=== PATIENT | female | born 1970 | race Caucasian/White ===

== ENCOUNTER 2018-05-25 14:15 | Emergency (ER) | payer BC ==
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
[2018-05-25 14:51] VITALS: BP 118/72
--- NOTE | 2018-05-25 14:58 | UC ---
Back Pain HPI - HPI Summary HPI Summary: pt states she felt some sharp pain in her L low back this am after she had been lifting a grandchild. feels like spasm and is worse with movement. - History of Current Complaint Chief Complaint: UCBackPain Stated Complaint: BACK PAIN Time Seen by Provider: 05/25/18 14:47 Hx Obtained From: Patient Onset/Duration: Sudden Onset Timing: Constant Pain Intensity: 5 Aggravating Factor(s): Movement Alleviating Factor(s): Rest Associated Signs And Symptoms: Negative: Fever, Weakness, Numbness, Tingling, Abdominal Pain, Flank Pain, Bladder Incontinence, Bowel Incontinence - Risk Factors AAA Risk Factors: Negative TAD Risk Factors: Negative Cauda Equina Risk Factors: Negative Epidural Abscess Risk Factors: Negative - Allergies/Home Medications Allergies/Adverse Reactions: Allergies Allergy/AdvReac Type Severity Reaction Status Date / Time No Known Allergies Allergy Verified 05/25/18 14:51 Home Medications: Home Medications Cholecalciferol TAB* [Vitamin D TAB*] 2,000 units PO DAILY 05/25/18 [History Confirmed 05/25/18] Phendimetrazine Tartrate 35 mg PO DAILY 05/25/18 [History Confirmed 05/25/18] PMH/Surg Hx/FS Hx/Imm Hx Endocrine History: Dyslipidemia GI/ History: Gastroesophageal Reflux - Surgical History Surgical History: Yes Surgery Procedure, Year, and Place: HYSTERECTOMY, C SECTION , LEFT KNEE SURGERY - Family History Known Family History: Positive: Other - [place] - Social History Occupation: Employed Full-time Lives: With Family Alcohol Use: Occasionally Substance Use Type: None Smoking Status (MU): Never Smoked Tobacco When Did the Patient Quit Smoking/Using Tobacco: 10 years ago - Immunization History Most Recent Influenza Vaccination: not this season Hx Tetanus, Diphtheria Vaccination: No Vaccination Up to Date: Yes Review of Systems Constitutional: Negative Skin: Negative Eyes: Negative ENT: Negative Respiratory: Negative Cardiovascular: Negative Gastrointestinal: Negative Genitourinary: Negative Motor: Negative Neurovascular: Negative Musculoskeletal: Other: - L low back pain Neurological: Negative Psychological: Negative Is Patient Immunocompromised?: No All Other Systems Reviewed And Are Negative: Yes Physical Exam Triage Information Reviewed: Yes Appearance: Well-Appearing Vital Signs: Initial Vital Signs Temp 97.8 F 05/25/18 14:41 Pulse 72 05/25/18 14:41 Resp 16 05/25/18 14:41 BP 118/72 05/25/18 14:41 Pulse Ox 98 05/25/18 14:41 Vital Signs Reviewed: Yes Eyes: Positive: Conjunctiva Clear ENT: Positive: Pharynx normal, TMs normal. Negative: Nasal congestion, Nasal drainage Neck: Positive: Supple, Nontender, No Lymphadenopathy Respiratory: Positive: Lungs clear, Normal breath sounds Cardiovascular: Positive: RRR, No Murmur Abdomen Description: Positive: Nontender, No Organomegaly, Soft. Negative: Bruit, CVA Tenderness (R), CVA Tenderness (L), Distended, Guarding Bowel Sounds: Positive: Present Musculoskeletal: Positive: No Edema, Other: - Cervical, thoracic and lumbar regions are without gross deformity swelling or discoloration. Spinous processes are nontender to palpation. Patient's pain is reproduced and worsened by palpation of the paraspinal muscles on the left and lumbar region. Range of motion is intact throughout however active range of motion increases left lower back pain. She is 5 out of 5 strength and 2+ reflexes 4. No saddle anesthesia. She is normal steady gait. Neurological: Positive: Alert Psychological: Positive: Age Appropriate Behavior Skin Exam: Normal Back Pain Course/Dx - Course Course Of Treatment: No concern for infection, acute abdomen or cauda equina. We'll treat with anti-inflammatory and muscle relaxer. Patient advised to seek close follow-up with her primary care to complete an of treatment or sooner for worsening - Differential Dx/Diagnosis Provider Diagnoses: acute L low back pain Discharge - Sign-Out/Discharge Documenting (check all that apply): Patient Departure - Discharge Plan Condition: Stable Disposition: HOME Prescriptions: Cyclobenzaprine TAB* [Flexeril 10 MG TAB*] 10 mg PO TID #10 tab Naproxen [Naprosyn 500 mg tab] 500 mg PO BID #14 tablet Patient Education Materials: Acute Low Back Pain (ED) Forms: *Work Release Referrals: Ney REA,Michelle Quiñonez [Primary Care Provider] - Additional Instructions: START THE MEDICATIONS AT BEDTIME TONIGHT. STOP ALL MOTRIN USE - Billing Disposition and Condition Condition: STABLE Disposition: Home Attestation Statement User Type: Provider - I was available for consult. This patient was seen by the PAT. The patient was not presented to, seen by, or examined by me. -April
== END 2018-05-25 15:12 | disposition home or self-care (01) ==
LOC: UCCORT 14:15
DX: M54.5 Low back pain (principal)
CPT/HCPCS: 99212; G0463

== ENCOUNTER 2018-09-03 11:21 | Emergency (ER) | payer BC, OTHER ==
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
[2018-09-03] MEDS ORDERED: Clindamycin 600 MG IVPREMIX(* 600 MG in PREMIX* 0 ML IV ONE (11:45)
[2018-09-03] MEDS ORDERED: NS 0.9% 1000 ML* 1,000 ML IV ONE (11:45)
[2018-09-03] MEDS ORDERED: Ketorolac INJ* 30 MG/ML 1 ML VIAL IV PUSH ONE (11:48)
[2018-09-03] MEDS ORDERED: Dexamethasone IV* 4 MG/ML 5 ML VIAL (20 MG) IVPB ONE (11:48)
--- NOTE | 2018-09-03 11:56 | ED ---
Throat Pain/Nasal Congestion - HPI Summary HPI Summary: Patient Presents with progressive anterior neck swelling and pain. This started about 3 days ago as tightness in her throat with mild dysphagia and has progressed to trismus with worsening of dysphagia. She denies marifer pain with trying to swallow - she just reports it's difficult to swallow and has some minor nasal congestion and feels a headache and ear pressure coming. Denies marifer neck stiffness, chest pain, sneezing, coughing, fevers, chills, nausea, vomiting, diarrhea, rash, racing heart. H/o strep and this does not feel the same. No h/o recent oral sex. Imms are UTD and no concern for contact with recent illness such as mumps, etc. She has not taken any meds prior to arrival for fear of choking on a pill. Prior to this morning, has been taking OTC theraflu w/ minimal relief. no trauma to throat/neck and no preceeding dental pain or h/o infections here. Daughter is with her today and reports she never goes to the dr - is sick to be here today. PCP also phoned in that she was concerned about pt's presentation. 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 - Allergies/Home Medications Allergies/Adverse Reactions: Allergies Allergy/AdvReac Type Severity Reaction Status Date / Time No Known Allergies Allergy Verified 05/25/18 14:51 PMH/Surg Hx/FS Hx/Imm Hx Previously Healthy: Yes Endocrine/Hematology History: Reports: Other Endocrine/Hematological Disorders - obesity - takes phendimetrazine and metformin Denies: Hx Anticoagulant Therapy, Hx Blood Disorders, Hx Diabetes, Hx Thyroid Disease Cardiovascular History: Reports: Hx Hypercholesterolemia Respiratory History: Denies: Hx Asthma, Hx Seasonal Allergies, Hx Sleep Apnea GI History: Reports: Hx Gastroesophageal Reflux Disease - takes PPI Sensory History: Reports: Hx Contacts or Glasses Opthamlomology History: Reports: Hx Contacts or Glasses Neurological History: Denies: Hx Headaches - Cancer History Cancer Type, 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 Negative: Chills, Fatigue Eyes: Negative Negative: Photophobia, Blurred Vision, Diplopia, Drainage, Erythema Positive: Sore Throat, Ear Ache. Negative: Nasal Discharge Cardiovascular: Negative Negative: Chest Pain Respiratory: Negative Negative: Shortness Of Breath, Cough Gastrointestinal: Negative Negative: Abdominal Pain, Vomiting, Diarrhea, Nausea Positive: no symptoms reported Musculoskeletal: Negative Skin: Negative Positive: Headache - mild. Negative: Weakness, Paresthesia, Numbness, Syncope, Slurred Speech Psychological: Normal - concerned but calm All Other Systems Reviewed And Are Negative: Yes Physical Exam Triage Information Reviewed: Yes Vital Signs On Initial Exam: Initial Vitals Temp Pulse Resp BP Pulse Ox 97.7 F 79 16 132/74 98 09/03/18 11:22 09/03/18 11:22 09/03/18 11:22 09/03/18 11:22 09/03/18 11:22 Vital Signs Reviewed: Yes Appearance: Positive: Well-Appearing, Pain Distress - mild; guarding jaw movements, Obese Skin: Positive: Warm, Skin Color Reflects Adequate Perfusion, Dry - mild superficial erythema over anterior soft neck tissue - no lesions. no ecchymosis Head/Face: Positive: Normal Head/Face Inspection Eyes: Positive: Normal, EOMI, Conjunctiva Clear. Negative: Conjunctiva Inflammed, Discharge ENT: Positive: Hearing grossly normal, Pharyngeal erythema - mild - tonsils + 2 - scant white spot on Lt (tonsilith vs exudate); no edema or purulence observed ; no lesions, Nasal congestion - mild, TMs normal, Trismus, Uvula midline. Negative: Nasal drainage, Tonsillar swelling, Muffled voice, Hoarse voice, Dental tenderness, Sinus tenderness Neck: Positive: No Lymphadenopathy, Tenderness @ - anterior submandibular space over soft neck tissue appears full, TTP Respiratory/Lung Sounds: Positive: Clear to Auscultation, Breath Sounds Present. Negative: Rales, Rhonchi, Stridor, Wheezes, Unable to speak in full sentences, Fatigue Cardiovascular: Positive: Normal, RRR, S1, S2. Negative: Murmur, Rub Bowel Sounds: Positive: Present Musculoskeletal: Positive: Normal, Strength/ROM Intact - no neck sitffness or rigidity Neurological: Positive: Normal, Sensory/Motor Intact, Alert, Oriented to Person Place, Time, CN Intact II-III Psychiatric: Positive: Normal - concerned but calm and cooperative Diagnostics - Vital Signs Vital Signs Temp Pulse Resp BP Pulse Ox 09/03/18 11:22 97.7 F 79 16 132/74 98 - Laboratory Result Diagrams: 09/03/18 11:57 09/03/18 11:57 Lab Statement: Any lab studies that have been ordered have been reviewed, and results considered in the medical decision making process. Re-Evaluation - Re-Evaluation First Eval Change: Improved - trismus better - smiling, swallowing easier (road tested with popsicle) EENT Course/Dx - Course Course Of Treatment: Diff dx: Hans's angina. Labs, meds and imaging ordered. Discussed w/ Dr. Hussein - fiberoptics available via IUC if needed - airway well controlled at this time. CT soft tissue neck: cellulitis w/o abscess - discussed w/ Dr. Potts who also feels this appears safe given her course in ED for d/c - clear education provided re: danger s/sx for return to ED. Pt and daughter agree w/ plan. - Diagnoses Provider Diagnoses: Cellulitis of submandibular region Discharge - Sign-Out/Discharge Documenting (check all that apply): Patient Departure - Discharge Plan Condition: Stable Disposition: HOME Prescriptions: Clindamycin HCl 300 mg PO TID #30 capsule Ibuprofen TAB* [Motrin TAB* 600 MG] 600 mg PO Q6H PRN #20 tab PRN Reason: Pain predniSONE TAB* [Deltasone 20 MG TAB*] 40 mg PO DAILY #8 tab Patient Education Materials: Cellulitis (ED) Referrals: Marcial Redman MD [Medical Doctor] - Additional Instructions: Take medications as directed for infection, pain and swelling Stay hydrated with plenty of fluids including water, low sugar Gatorade, soup broth, smoothies, yogurt, etc. Follow-up with Dr. Redman on Wednesday for reevaluation - call in the morning to schedule appointment - take CD disc with you for review *If in the meantime you develop return of swelling, tightness, difficulties breathing or swallowing, return to the emergency department immediately - Billing Disposition and Condition Condition: STABLE Disposition: Home
[2018-09-03] MEDS ORDERED: IVPREMIX ONE (12:02)
[2018-09-03] MEDS ORDERED: CLINDAMYCIN 600 MG ONE (12:02)
[2018-09-03 12:06] LABS: ABS Basophils 0.1 10^3/ul (0-0.2); ABS Eosinophils 0.1 10^3/ul (0-0.6); ABS Lymphocytes 2.9 10^3/ul (1.0-4.8); ABS Monocytes 0.8 10^3/ul (0-0.8); ABS Neutrophils 7.3 10^3/ul (1.5-7.7); ABS Nucleated RBC 0 10^3/ul; Eosinophil % 0.8 % (0-6); Hematocrit 42 % (35-47); Hemoglobin 14.1 g/dl (12.0-16.0); Lymphocyte % 26.2 % (25-47); Mean Corpuscular HGB Conc 33 g/dl (31-36); Mean Corpuscular Hemoglobin 28 pg (27-31); Mean Corpuscular Volume 83 fL (80-97); Mean Platelet Volume 7.2 fL (7.4-10.4); Nucleated Red Blood Cells % 0; Platelet Count 275 10^3/ul (150-450); Red Blood Count 5.12 10^6/ul (4.00-5.40); Red Cell Distribution Width 14 % (10.5-15); White Blood Count 11.2 10^3/ul (3.5-10.8)
[2018-09-03 12:14] LABS: INR 1.04 (0.77-1.02)
[2018-09-03] MEDS ORDERED: Iohexol 300* (CONTRAST) 10 ML SDV IV ONE (12:36)
[2018-09-03 14:09] VITALS: BP 130/76
== END 2018-09-03 14:08 | disposition home or self-care (01) ==
LOC: ED 11:21
DX: L03.221 Cellulitis of neck (principal); R50.9 Fever, unspecified; R51 Headache; K21.9 Gastro-esophageal reflux disease without esophagitis
CPT/HCPCS: 36415; 70491; 80053; 83605; 85025; 85610; 85730; 86140; 86308; 87651; 96365; 96375; 99284; J1100; J1885; Q9967

== ENCOUNTER 2019-02-05 11:17 | Emergency (ER) | payer OTHER ==
[2019-02-05 11:43] VITALS: BP 121/69
--- NOTE | 2019-02-05 13:12 | UC ---
Upper Extremity HPI - HPI Summary HPI Summary: pt c/o pain to the R side of her neck. it began the day after raking leaves. self txing with ice, heat and occasional IB without relief. no cp, sob, numb/tingle/weakness to arms. - History of Current Complaint Chief Complaint: UCUpperExtremity Stated Complaint: RT SHOULDER/NECK INJURY Time Seen by Provider: 02/05/19 13:05 Hx Obtained From: Patient Pain Intensity: 8 Aggravating Factor(s): Movement - Allergies/Home Medications Allergies/Adverse Reactions: Allergies Allergy/AdvReac Type Severity Reaction Status Date / Time No Known Allergies Allergy Verified 02/05/19 11:38 Home Medications: Home Medications metFORMIN* [Glucophage 500 MG TAB *] 500 - 1,000 mg BID 02/05/19 [History Confirmed 02/05/19] PMH/Surg Hx/FS Hx/Imm Hx Endocrine History: Diabetes, Dyslipidemia GI/ History: Gastroesophageal Reflux Other History Of: Negative For: Anticoagulant Therapy - Surgical History Surgical History: Yes Surgery Procedure, Year, and Place: HYSTERECTOMY, C SECTION , LEFT KNEE SURGERY - Family History Known Family History: Positive: Other - [place] - Social History Occupation: Employed Full-time Alcohol Use: Occasionally Substance Use Type: None Smoking Status (MU): Never Smoked Tobacco When Did the Patient Quit Smoking/Using Tobacco: 10 years ago - Immunization History Most Recent Influenza Vaccination: not this season Hx Tetanus, Diphtheria Vaccination: No Vaccination Up to Date: Yes Review of Systems All Other Systems Reviewed And Are Negative: Yes Respiratory: Negative: Shortness Of Breath Cardiovascular: Negative: Chest Pain Musculoskeletal: Positive: Other: - R neck pain Neurological: Negative: Weakness, Paresthesia, Numbness Physical Exam Triage Information Reviewed: Yes Appearance: Well-Appearing Vital Signs: Initial Vital Signs Temp 97.6 F 02/05/19 11:40 Pulse 69 02/05/19 11:40 Resp 16 02/05/19 11:40 BP 121/69 02/05/19 11:40 Pulse Ox 99 02/05/19 11:40 Vital Signs Reviewed: Yes Eyes: Positive: Conjunctiva Clear ENT: Positive: Normal ENT inspection Neck: Positive: Supple, No Lymphadenopathy, Other: - C-spine non tender. R lateral trapezius is tender and worsen with active ROM. ROM is intact.. Negative: Nuchal Rigidity Respiratory: Positive: Lungs clear, No respiratory distress Cardiovascular: Positive: RRR, Pulses Normal - BUE's Abdomen Description: Positive: Nontender Musculoskeletal: Positive: ROM Intact Neurological: Positive: Alert Psychological: Positive: Age Appropriate Behavior Skin Exam: Normal Upper Extremity Course/Dx - Differential Dx/Diagnosis Provider Diagnosis: Trapezius muscle spasm Discharge - Sign-Out/Discharge Documenting (check all that apply): Patient Departure All imaging exams completed and their final reports reviewed: No Studies - Discharge Plan Condition: Stable Disposition: HOME Prescriptions: Cyclobenzaprine TAB* [Flexeril 10 MG TAB*] 10 mg PO TID PRN #10 tab PRN Reason: Spasms - Neck Naproxen [Naprosyn 500 mg tab] 500 mg PO BID #10 tablet Patient Education Materials: Muscle Spasm (ED) Referrals: Doris Cai PA [Primary Care Provider] - 7 Days - Billing Disposition and Condition Condition: STABLE Disposition: Home - Attestation Statements Provider Attestation: Per institutional requirements, I have reviewed the chart, however, I was not consulted specifically or made aware of this patient by the midlevel provider. I did not personally evaluate, interact with , or disposition this patient.
== END 2019-02-05 13:22 | disposition home or self-care (01) ==
LOC: UCCORT 11:17
DX: M62.838 Other muscle spasm (principal); M54.2 Cervicalgia; E11.9 Type 2 diabetes mellitus without complications; Z79.84 Long term (current) use of oral hypoglycemic drugs; E78.5 Hyperlipidemia, unspecified; K21.9 Gastro-esophageal reflux disease without esophagitis
CPT/HCPCS: 99212; G0463